=== PATIENT | male | born 1980 | race Caucasian/White ===

== ENCOUNTER 2016-08-21 07:42 | Emergency (ER) | payer SELFPAY ==
[~2016-08-21] VITALS: Ht 167.6 cm; Wt 72.6 kg
[2016-08-21] MEDS ORDERED: AZITHROMYCIN 250 MG TABLET. PO ONE (08:00)
[2016-08-21] MEDS ORDERED: metroNIDAZOLE 500 MG TABLET PO ONE (08:00)
[2016-08-21] MEDS ORDERED: cefTRIAXone IM 250 MG VIAL IM ONE (08:00)
[2016-08-21] MEDS ORDERED: CIPR500T94 PO (08:27)
--- NOTE | 2016-08-21 08:27 | PHYS DOC ---
Past Medical History Past Medical History: No Pertinent History Past Surgical History: No Surgical History Additional Information: /2 ppd Alcohol Use: None Drug Use: None Adult General Chief Complaint Chief Complaint: SEXUALLY TRANSMITTED DISEASE HPI HPI Patient is a 35 year old male presents to the emergency department stating he' s had 2-3 days of green discharge. Patient states that he has had 2 sexual partners. Patient is very agitated as he has having to repeat the information as to why he is here for a second time. Patient states that communication needs to be better throughout the hospital. Explained to patient that on the provider he needs to explain to me what's happening. Patient continues to state that he has burning with urination. He denies any nausea vomiting he denies any abdominal pain or back pain. Review of Systems Review of Systems Constitutional: Denies fever or chills [] Eyes: Denies change in visual acuity, redness, or eye pain [] HENT: Denies nasal congestion or sore throat [] Respiratory: Denies cough or shortness of breath [] Cardiovascular: No additional information not addressed in HPI [] GI: Denies abdominal pain, nausea, vomiting, bloody stools or diarrhea [] : dysuria denies hematuria [] Musculoskeletal: Denies back pain or joint pain [] Integument: Denies rash or skin lesions [] Neurologic: Denies headache, focal weakness or sensory changes [] Endocrine: Denies polyuria or polydipsia [] Current Medications Current Medications Current Medications Medications (Trade) Dose Ordered Sig/Rikki Start Time Stop Time Status Last Admin Dose Admin Azithromycin (Zithromax) 1,000 mg 1X ONCE 08/21/16 08:00 08/21/16 08:02 DC 08/21/16 08:37 1,000 MG Ceftriaxone Sodium (Rocephin Im) 250 mg 1X ONCE 08/21/16 08:00 08/21/16 08:02 DC 08/21/16 08:37 250 MG Metronidazole (Flagyl) 2,000 mg 1X ONCE 08/21/16 08:00 08/21/16 08:02 DC 08/21/16 08:38 2,000 MG Allergies Allergies Allergies Coded Allergies Type Severity Reaction Last Updated Verified No Known Drug Allergies 08/21/16 No Physical Exam Physical Exam Constitutional: Well developed, well nourished, no acute distress, non-toxic appearance. [] HENT: Normocephalic, atraumatic, bilateral external ears normal, oropharynx moist, no oral exudates, nose normal. [] Eyes: PERRLA, EOMI, conjunctiva normal, no discharge. [] Neck: Normal range of motion, no tenderness, supple, no stridor. [] Cardiovascular:Heart rate regular rhythm, no murmur [] Lungs & Thorax: Bilateral breath sounds clear to auscultation [] Skin: Warm, dry, no erythema, no rash. [] Back: No tenderness Extremities: No tenderness, no cyanosis, no clubbing, ROM intact, no edema. [] Neurologic: Alert and oriented X 3, normal motor function, normal sensory function, no focal deficits noted. [] Psychologic: Affect normal, judgement normal, mood normal. [] Current Patient Data Vital Signs Vital Signs Date Time Temp Pulse Resp B/P (MAP) Pulse Ox O2 Delivery O2 Flow Rate FiO2 08/21/16 08:39 92 16 144/72 (96) 98 Room Air 08/21/16 07:45 98.0 98.0 Lab Values Laboratory Tests Test 08/21/16 08:00 Urine Collection Type Void Urine Color Yellow Urine Clarity Turbid Urine pH 6.0 Urine Specific [place] >=1.030 Urine Protein 100 mg/dL (NEG-TRACE) Urine Glucose (UA) Negative mg/dL (NEG) Urine Ketones (Stick) Negative mg/dL (NEG) Urine Blood Moderate (NEG) Urine Nitrite Negative (NEG) Urine Bilirubin Negative (NEG) Urine Urobilinogen Dipstick 1.0 mg/dL (0.2 mg/dL) Urine Leukocyte Esterase Large (NEG) Urine RBC 6-10 /HPF (0-2) Urine WBC >40 /HPF (0-4) Urine Bacteria Many /HPF (0-FEW) Urine Mucus Mod /LPF EKG EKG [] Radiology/Procedures Radiology/Procedures [] Course & Med Decision Making Course & Med Decision Making Pertinent Labs and Imaging studies reviewed. (See chart for details) Spoke with patient in regards to urine. He'll be treated here in the emergency department for sexual transmitted infections. Also explained at the health Department would also take care of these type symptoms as well. Patient will be provided with Rocephin, Zithromax, Flagyl. He'll be provided with a prescription for Cipro. He'll be discharged home in stable condition. He was instructed that these results will not be back for 3-4 days. He will be notified by phone. If we are unable to contact him by phone a certified letter will be sent to him as well as the health department will contact him. Patient was instructed that he will need to notify his sexual partners that they may bee treated as well. Patient continues to have an attitude with the provider. Patient was provided with signs and symptoms to return back to the emergency department. Dragon Disclaimer Dragon Disclaimer This electronic medical record was generated, in whole or in part, using a voice recognition dictation system. Departure Departure Impression: Primary Impression: Concern about sexually transmitted disease in male without diagnosis Additional Impression: UTI (urinary tract infection) Disposition: 01 HOME, SELF-CARE Condition: STABLE Patient Instructions: Sexually Transmitted Disease, Urinary Tract Infection, [id number] Additional Instructions: You have been treated for sexually transmitted infections here in the emergency department. He'll need to notify your sexual partners in regards to this. Your possibly provided with Cipro for urinary tract infection. Take the medication as prescribed. Drink plenty of fluids ranges water. Avoid cranberry juice cocktail, carbonate beverages, caffeine, citrus fruits and alcohol seizure considered irritants to the bladder. It was instructed to avoid sexual intercourse for the next 2 weeks. He was also instructed to use condoms to prevent sexually transmitted infections. Follow-up primary care physician as needed. Return back to emergency department sign symptoms become worse. Scripts Ciprofloxacin Hcl (CIPRO) 500 Mg Tablet 1 TAB PO BID, #14 TAB Prov: NORBERT NOVAK APRN 08/21/16 Problem Qualifiers NORBERT NOVAK APRN Aug 21, 2016 08:27
[2016-08-21 08:39] VITALS: BP 144/72
[2016-08-21 08:40] LABS: BILIRUBIN,URINE NEGATIVE (NEG); GLUCOSE,URINE NEGATIVE (NEG); NITRITE,URINE NEGATIVE (NEG); PROTEIN,URINE 100 mg/dL (NEG-TRACE)
[2016-08-21 09:01] LABS: BACTERIA,URINE MANY /HPF (0-FEW); WBC,URINE >40 /HPF (0-4)
== END 2016-08-21 09:22 | disposition home or self-care (01) ==
LOC: ER 07:42
DX: Z20.2 Contact with and (suspected) exposure to infections with a predominantly sexual mode of transmission (principal); N39.0 Urinary tract infection, site not specified; F17.200 Nicotine dependence, unspecified, uncomplicated
CPT/HCPCS: 81001; 87086; 87491; 87591; 96372; 99284; J0696; Q0144

== ENCOUNTER 2018-05-15 01:33 | Emergency (ER) | payer SELFPAY ==
[~2018-05-15] VITALS: Ht 165.1 cm; Wt 72.6 kg
[~2018-05-15 01:33] MED LIST: CIPR500T94 PO
[2018-05-15 01:40] VITALS: BP 144/73
[2018-05-15] MEDS ORDERED: ARIP20TA5 PO (01:57)
[2018-05-15] MEDS ORDERED: DICL50TA4 PO (02:44)
[2018-05-15] MEDS ORDERED: TRAM50TA PO (02:44)
--- NOTE | 2018-05-15 02:44 | PHYS DOC ---
Past Medical History Past Medical History: No Pertinent History Additional Past Medical Histor: DISLOCATED R SHOULDER, Past Surgical History: No Surgical History, Appendectomy Alcohol Use: None Drug Use: None Adult General Chief Complaint Chief Complaint: SHOULDER INJURY HPI HPI Patient is a 37-year-old male who presents with complaint of right shoulder pain for the last couple of weeks ever since helping someone lift a toilet bowl up some stairs. Patient states that he was assisting another individual and states that the other individual had lost her ammonium sulfate operator on the box and he was bearing all the weight. He states that since that time he has had pain in the right shoulder. He states the pain has been similar to when he had dislocated his shoulder in the past. Patient states the pain is progressively getting worse. He denies any fall or other injury to the shoulder. He rates pain to be moderate and is worsened with movement of the shoulder. Review of Systems Review of Systems Constitutional: Denies fever or chills [] Respiratory: Denies cough or shortness of breath [] Cardiovascular: No additional information not addressed in HPI [] Musculoskeletal: Complains of right shoulder pain [] I Allergies Allergies Allergies Coded Allergies Type Severity Reaction Last Updated Verified No Known Drug Allergies 08/21/16 No Physical Exam Physical Exam Constitutional: Well developed, well nourished, no acute distress, non-toxic appearance. [] Cardiovascular:Heart rate regular rhythm, no murmur [] Lungs & Thorax: Bilateral breath sounds clear to auscultation [] Skin: Warm, dry, no erythema, no rash. [] Extremities: Examination of right shoulder demonstrates decreased range of motion due to reported pain. There is tenderness to palpation overlying the right AC joint. [] Neurologic: Alert and oriented X 3, no focal deficits noted. [] Current Patient Data Vital Signs Vital Signs Date Time Temp Pulse Resp B/P (MAP) Pulse Ox O2 Delivery O2 Flow Rate FiO2 05/15/18 01:40 98.5 107 20 144/73 (96) 96 Room Air 98.5 EKG EKG [] Radiology/Procedures Radiology/Procedures [] Impressions: X-ray of right shoulder demonstrates findings of AC separation of unknown chronicity Course & Med Decision Making Course & Med Decision Making Pertinent Labs and Imaging studies reviewed. (See chart for details) [] Dragon Disclaimer Dragon Disclaimer This electronic medical record was generated, in whole or in part, using a voice recognition dictation system. Departure Departure Impression: Primary Impression: AC separation Disposition: 01 HOME, SELF-CARE Condition: STABLE Referrals: NO PCP (PCP) SHINE LARA MD Patient Instructions: Acromioclavicular Separation with [facility]hab[facility] Scripts Diclofenac Sodium (DICLOFENAC SODIUM) 50 Mg Tablet.dr 1 TAB PO BID PRN for PAIN, #20 TAB Prov: AGAPITO EATON Jr. DO 05/15/18 Tramadol Hcl (TRAMADOL HCL) 50 Mg Tablet 50 MG PO Q6HRS PRN for PAIN, #10 TAB Prov: AGAPITO EATON Jr. DO 05/15/18 Problem Qualifiers Primary Impression: AC separation Encounter type: initial encounter Laterality: right Qualified Codes: S43.101A - Unspecified dislocation of right acromioclavicular joint, initial encounter AGAPITO EATON Jr. DO May 15, 2018 02:44
--- NOTE | 2018-05-15 06:40 | RAD ---
Three views right shoulder History: pain Internally and externally rotated AP of shoulder obtained, as well as "Y" view. The glenohumeral relationship is normal. The visualized osseous structures appear normal. Impression: No acute findings. end impression Electronically signed by: Mic Bravo III, MD (05/15/2018 6:37 AM) [facility] [id number]
== END 2018-05-15 03:00 | disposition home or self-care (01) ==
LOC: ER 01:33
DX: S43.101A Unspecified dislocation of right acromioclavicular joint, initial encounter (principal); Z90.89 Acquired absence of other organs; X50.0XXA Overexertion from strenuous movement or load, initial encounter; Y93.89 Activity, other specified; Y92.89 Other specified places as the place of occurrence of the external cause; Y99.8 Other external cause status
CPT/HCPCS: 73030; 99283

== ENCOUNTER 2018-06-28 10:03 | Emergency (ER) | payer SELFPAY ==
[~2018-06-28] VITALS: Ht 167.6 cm; Wt 79.8 kg
[~2018-06-28 10:03] MED LIST changes: +ARIP20TA5 PO; +DICL50TA4 PO; +TRAM50TA PO
[2018-06-28 10:07] VITALS: BP 182/103
[2018-06-28] MEDS ORDERED: AMOX875T PO (10:42)
[2018-06-28] MEDS ORDERED: HYDR-3164 PO (10:42)
--- NOTE | 2018-06-28 10:42 | PHYS DOC ---
Past Medical History Past Medical History: Hypertension, Other Additional Past Medical Histor: DISLOCATED R SHOULDER, Past Surgical History: Appendectomy Additional Information: 0.5 TO 1 PPD Alcohol Use: Occasionally Drug Use: None Adult General Chief Complaint Chief Complaint: DENTAL PROBLEM HPI HPI Patient is a 37 year old male with history of hypertension, who presents to the ED today complaining of 10 out of 10 left lower gum dental pain with swelling that began yesterday. Patient denies any fever or trismus. He states he already has a dentist, he had seen the dentist 2 weeks ago, he states they did x-rays and he is supposed to go back for extractions but they are closed today Review of Systems Review of Systems Constitutional: Denies fever or chills [] HENT: Reports left lower gum dental pain and swelling. Denies nasal congestion or sore throat [] Musculoskeletal: Denies back pain or joint pain [] Integument: Denies rash or skin lesions [] Neurologic: Denies headache, focal weakness or sensory changes [] All other systems were reviewed and found to be within normal limits, except as documented in this note. Allergies Allergies Allergies Coded Allergies Type Severity Reaction Last Updated Verified No Known Drug Allergies 08/21/16 No Physical Exam Physical Exam Constitutional: Well developed, well nourished, no acute distress, non-toxic appearance. [] HENT: Normocephalic, atraumatic, bilateral external ears normal, oropharynx moist, no oral exudates, nose normal. [] Left lower gum exterior aspect appears swollen. Left inner lower gum on the molars is swollen consistent with a dental abscess with no fluctuance. Multiple teeth are missing, severe dental decayed noted throughout his teeth. Skin: Warm, dry, no erythema, no rash. [] Back: No tenderness, no CVA tenderness. [] Extremities: No tenderness, no cyanosis, no clubbing, ROM intact, no edema. [] Neurologic: Alert and oriented X 3, normal motor function, normal sensory func tion, no focal deficits noted. [] Psychologic: Affect normal, judgement normal, mood normal. [] Current Patient Data Vital Signs Vital Signs Date Time Temp Pulse Resp B/P (MAP) Pulse Ox O2 Delivery O2 Flow Rate FiO2 06/28/18 10:07 98.5 98 20 182/103 (129) 97 Room Air 98.5 EKG EKG [] Radiology/Procedures Radiology/Procedures [] Course & Med Decision Making Course & Med Decision Making Pertinent Labs and Imaging studies reviewed. (See chart for details) Patient has dental abscess. Discharged with amoxicillin. He already has a dentist. Follow-up in the next 1 week. Brandieon Disclaimer Dragon Disclaimer This electronic medical record was generated, in whole or in part, using a voice recognition dictation system. Departure Departure Impression: Primary Impression: Dentalgia Additional Impression: Abscess, dental Disposition: 01 HOME, SELF-CARE Condition: STABLE Referrals: NO PCP (PCP) Follow-up with your dentist in the next 1 week Patient Instructions: Dental Abscess Additional Instructions: You were seen in the emergency room for a dental abscess, we put you on antibiotics, ensure you complete them. Please follow-up with your dentist in the next 1-2 weeks. Scripts Hydrocodone/Apap 5-325 (NORCO 5-325 TABLET) 1 Each Tablet 1 TAB PO Q6HRS, #8 TAB MUST FILL PRESCRIPTION FOR AMOXICILLIN BEFORE BEING ALLOWED TO FILL PRESCRITION FOR NORCO Prov: VAISHALI JOHNSON APRN 06/28/18 Amoxicillin (AMOXICILLIN) 875 Mg Tablet 1 TAB PO BID, #20 TAB Prov: VAISHALI JOHNSON APRN 06/28/18 Problem Qualifiers VAISHALI JOHNSON APRN June 28, 2018 10:42
== END 2018-06-28 10:57 | disposition home or self-care (01) ==
LOC: ER 10:03
DX: K04.7 Periapical abscess without sinus (principal); I10 Essential (primary) hypertension; F17.200 Nicotine dependence, unspecified, uncomplicated; Z90.89 Acquired absence of other organs
CPT/HCPCS: 99283

== ENCOUNTER 2019-12-28 15:58 | Emergency (ER) | payer SELFPAY ==
[~2019-12-28] VITALS: Ht 167.6 cm; Wt 180.0 kg
[~2019-12-28 15:58] MED LIST changes: +AMOX875T PO; +HYDR-3164 PO
[2019-12-28 17:15] VITALS: BP 138/96
--- NOTE | 2019-12-28 17:54 | PHYS DOC ---
Past Medical History Past Medical History: Bipolar, Hypertension, STD, Other Additional Past Medical Histor: DISLOCATED R SHOULDER, Past Medical History TBI, PTSD (NADINE OCHAO DO) Past Surgical History: Appendectomy (NADINE OCHOA DO) Smoking Status: Current Every Day Smoker Alcohol Use: Occasionally Drug Use: None, Marijuana (NADINE OCHOA DO) General Adult EDM: Chief Complaint: SEXUALLY TRANSMITTED DISEASE HPI: HPI: Patient is a 39 year old male who presents with painful blisters on penis. Patient noticed blisters a couple of days ago. Sexually active with 1 female partner, not using protection, not monogamous. Denies dysuria, hematuria, discharge, or fever. Reports prior history of gonorrhea and syphilis. (NADINE OCHOA DO) Review of Systems: Review of Systems: Constitutional: Denies fever or chills Eyes: Denies redness or eye pain HENT: Denies nasal congestion or sore throat Respiratory: Denies cough or shortness of breath Cardiovascular: Denies chest pain or palpitations GI: Denies abdominal pain, nausea, or vomiting : Denies dysuria or hematuria. Reports blisters on penis. Musculoskeletal: Denies back pain or joint pain Integument: Reports blisters on penis. Neurologic: Denies headache, focal weakness or sensory changes Complete systems were reviewed and found to be within normal limits, except as documented in this note. (NADINE OCHOA DO) Current Medications: Abilify (NADINE OCHOA DO) Allergies: Allergies: Allergies Coded Allergies Type Severity Reaction Last Updated Verified No Known Drug Allergies 08/21/16 No (NADINE OCHOA DO) Physical Exam: PE: Constitutional: Well developed, well nourished, no acute distress, non-toxic appearance HENT: Normocephalic, atraumatic Eyes: Conjunctiva normal, no discharge Neck: Normal range of motion, no tenderness, supple Lungs & Thorax: No respiratory distress, equal chest rise and fall Abdomen: Soft, no tenderness Skin: Warm, dry : painful ulcerative lesions noted to glans penis and to base of penis at various stages of healing Extremities: No tenderness, no deformity Neurologic: Alert and oriented X 3, no focal deficits noted Psychologic: Affect normal, judgment normal (NADINE OCHOA DO) Current Patient Data: Vital Signs: Vital Signs Date Time Temp Pulse Resp B/P (MAP) Pulse Ox O2 Delivery O2 Flow Rate FiO2 12/28/19 17:15 97.6 101 18 138/96 (110) 97 Room Air 97.6 (NADINE OCHOA DO) Labs: Laboratory Tests Test 12/28/19 17:25 12/28/19 18:05 Urine Collection Type Unknown Urine Color Yellow Urine Clarity Clear Urine pH 6.0 Urine Specific [place] 1.025 Urine Protein Negative mg/dL Urine Glucose (UA) Negative mg/dL Urine Ketones (Stick) Negative mg/dL Urine Blood Negative Urine Nitrite Negative Urine Bilirubin Negative Urine Urobilinogen Dipstick 1.0 mg/dL Urine Leukocyte Esterase Negative Urine RBC 0 /HPF Urine WBC 0 /HPF Urine Bacteria 0 /HPF Urine Mucus Slight /LPF Urine Sperm Present /HPF Treponema pallidum Antibody Reactive Current Medications Medications (Trade) Dose Ordered Sig/Rikki Route PRN Reason Start Time Stop Time Status Last Admin Dose Admin Penicillin G Benzathine (Bicillin L-A) 2,400,000 unit 1X ONCE IM 12/28/19 19:30 12/28/19 19:31 DC 12/28/19 19:57 (JOSE RUIZ DO) Course & Med Decision Making: Course & Med Decision Making Patient is a 39 year old male presenting with painful ulcerative lesions on penis that he noticed a couple of days ago. Patient is sexually active with 1 female partner, is not using protection, and is not monogamous. UA pending. Urine chlamydia and gonorrhea cultures pending. Patient also requesting to be tested for syphilis. Laboratory data pending. Lesions more consistent with herpes. 1800-signout provided to Dr. Ruiz for further evaluation and final disposition. Discussed current findings and plan with patient who acknowledges understanding and agreement. (NADINE OCHOA DO) Dragon Disclaimer: Dragon Disclaimer: This electronic medical record was generated, in whole or in part, using a voice recognition dictation system. (NADINE OCHOA DO) Departure Departure Impression: Primary Impression: Herpes genitalis in men Additional Impression: Syphilis Disposition: 01 DC HOME SELF CARE/HOMELESS Condition: STABLE Referrals: NO PCP (PCP) FOLLOW UP WITH THE LOCAL HEALTH DEPARTMENT. Patient Instructions: Genital Herpes, Syphilis Detection Test Scripts Acyclovir (ACYCLOVIR) 400 Mg Tablet 1 TAB PO TID, #30 TAB Prov: JOSE RUIZ DO 12/28/19 NADINE OCHOA DO Dec 28, 2019 17:54 JOSE RUIZ DO Dec 28, 2019 19:46
[2019-12-28 18:08] LABS: BILIRUBIN,URINE NEGATIVE (NEG); CLARITY,URINE CLEAR; COLOR,URINE YELLOW; NITRITE,URINE NEGATIVE (NEG); PROTEIN,URINE NEGATIVE (NEG-TRACE)
[2019-12-28 18:23] LABS: BACTERIA,URINE 0 /HPF (0-FEW); RBC,URINE 0 /HPF (0-2); SPERM,URINE PRESENT /HPF; WBC,URINE 0 /HPF (0-4)
[2019-12-28] MEDS ORDERED: PENICILLIN G BENZATHINE LA 2,400,000 UNIT/4 ML DISP.SYRIN. IM ONE (19:30)
[2019-12-28] MEDS ORDERED: ACYC400T PO (20:13)
== END 2019-12-28 20:26 | disposition home or self-care (01) ==
LOC: ER 15:58
DX: B00.9 Herpesviral infection, unspecified (principal); A53.9 Syphilis, unspecified; I10 Essential (primary) hypertension; F31.9 Bipolar disorder, unspecified; F17.200 Nicotine dependence, unspecified, uncomplicated; F12.90 Cannabis use, unspecified, uncomplicated; Z90.89 Acquired absence of other organs; Z98.890 Other specified postprocedural states
CPT/HCPCS: 81001; 86592; 87491; 87591; 96372; 99283; J0561